=== PATIENT | male | born 1995 | race Caucasian/White ===

== ENCOUNTER 2017-09-27 23:24 | Emergency (ER) | payer BC, OTHER ==
[~2017-09-27] VITALS: Ht 175.3 cm; Wt 79.9 kg
[~2017-09-27 23:24] MED LIST: ASPI-390 PO; [UNRECOGNIZED DRUG - CODE] PO
[2017-09-27 23:29] VITALS: TEMP 36.9; Ht 175.3 cm; Wt 79.9 kg
[2017-09-27] MEDS ORDERED: DOXYCYCLINE HYCLATE 100 MG CAP PO STA (23:39)
[2017-09-27] MEDS ORDERED: DIPHTHERIA/TETANUS/PERTUSSIS 0.5 ML SYR/VIAL IM. ONE (23:45)
--- NOTE | 2017-09-28 00:14 | EMERGENCY ROOM VISIT NOTE ---
ED Visit Note First contact with patient: 23:33 CHIEF COMPLAINT: Tick bite HISTORY OF PRESENT ILLNESS: This patient is a 22-year-old male that presents to the emergency department with a complaint of a tick in right lateral thigh that she noticed today. he thinks that the tick has been there less than 24 hours. The patient's mother tried to remove it. The tick head remains embedded. The patient is unsure of his last tetanus shot. REVIEW OF SYSTEMS: Head: No headache, injury or neck pain. A Neck: No pain , stiffness, or swelling. Neurological: No headache, new changes in mental status, vertigo, focal weakness, numbness. Gastrointestinal: No abdominal pain , blood in stools, diarrhea, loss of appetite, nausea, or vomiting. General: No fever or chills, fatigue, loss of appetite, or significant recent weight gain or loss. PMH: Otherwise healthy SOCIAL HISTORY: Patient lives at home. Denies tobacco or EtOH use. PHYSICAL EXAM: Vital Signs: Reviewed Nurse's notes. There is a small zone of inflammation and eccymosis around the spot where the tick head remains embedded in the right lateral thigh. The skin is otherwise clear. NEUROLOGICAL: Alert and cooperative. Sensory and motor functions grossly intact. COURSE: The patient was seen and examined. The patient was given doxycycline 200 mg by mouth. The patient was given an Adacel injection. The area was prepped with alcohol. A small wheal was made with 0.5 cc of buffered lidocaine under the tick head. Using a scalpel and forceps, the tick head was then easily removed. The patient tolerated the procedure well. he was given a Band- Aid. Discharge instructions were reviewed, and she was discharged in good condition DIAGNOSIS: Tick bite DISCHARGE INSTRUCTIONS & TREATMENT: Watch the area for signs of infection. Please watch for a bull's-eye rash. Other warning signs would be fever, severe headache or joint pain. Please follow-up with your primary care physician as needed, and do not hesitate to return to the emergency department with any new or concerning symptoms It was a pleasure participating in your care today This chart was completed in part utilizing [employer] Voice Recognition software. Attempts were made to minimize the grammatical errors, random word insertions, pronoun errors and incomplete sentences. Any formal questions or concerns about the content, text or information contained within the body of this dictation should be directly addressed to the provider for clarification.
[2017-09-28 00:17] VITALS: BP 121/70; PULSE 71; O2SAT 98
== END 2017-09-28 00:17 | disposition home or self-care (01) ==
LOC: C.EDB 23:25 → C.EDC 09-28 00:17
DX: S70.361A Insect bite (nonvenomous), right thigh, initial encounter (principal); W57.XXXA Bitten or stung by nonvenomous insect and other nonvenomous arthropods, initial encounter

== ENCOUNTER 2018-01-01 22:28 | Emergency (ER) | payer OTHER ==
[~2018-01-01] VITALS: Ht 172.7 cm; Wt 76.4 kg
[~2018-01-01 22:28] MED LIST changes: -ASPI-390 PO
[2018-01-01 22:33] VITALS: TEMP 36.9; Ht 172.7 cm; Wt 76.4 kg
[2018-01-01] MEDS ORDERED: FAMOTIDINE 20MG/5ML IV PUSH IV STA (22:41)
[2018-01-01] MEDS ORDERED: SODIUM CHLORIDE 0.9% 1000ML 1,000 ML IV STA (22:41)
[2018-01-01] MEDS ORDERED: METHYLPREDNISOLONE 125 MG VIAL IV STA (22:41)
--- NOTE | 2018-01-01 22:53 | EMERGENCY ROOM VISIT NOTE ---
History Report prepared by Joaquim: Jake Lin Under the Supervision of: Dr. Enrike Hart M.D. First contact with patient: 22:37 Chief Complaint: ALLERGIC REACTION Stated Complaint: BEE STING, LIGHT HEADED, SWELLING, HEADACHE History of Present Illness The patient is a 22 year old male who presents to the Emergency Room with complaints of an allergic reaction to a bee sting on his right forearm that occurred today at about 1300. He states there was minimal swelling when the bee stung him. He states the bee sting happened at work but his boss did not allow him to come to the ED. He states he took Benadryl at 2130 and that before he did he had trouble breathing and swallowing. He has a known bee sting allergy. Source of History: patient Onset: Today at 1300 Position: arm (right) Symptom Intensity: minimal Modifying Factors (Relieving): other (Benadryl ) Associated Symptoms: + SOB Review of Systems See HPI for pertinent positives and negatives. A total of ten systems were reviewed and were otherwise negative. Past Medical & Surgical Medical Problems: (1) Asthma (2) Seasonal allergies Family History Patient reports no known family medical history. Social History Smoking Status: Never Smoker Alcohol Use: none Drug Use: none Marital Status: single Housing Status: lives with family Current/Historical Medications Scheduled PRN Diphenhydramine Hcl (Benadryl Allergy), 25-50 MG PO UD PRN for Allergic Reaction Allergies Coded Allergies: Lactose (Verified Allergy, Intermediate, N/V/D, 09/27/17) BEE STING (Verified Allergy, Unknown, ANAPHYLAXIS, 01/01/18) Physical Exam Vital Signs Date Time Temp Pulse Resp B/P (MAP) Pulse Ox O2 Delivery O2 Flow Rate FiO2 01/01/18 22:48 98 Room Air 01/01/18 22:33 36.9 106 16 131/83 98 Room Air Physical Exam Physical Exam GENERAL: He is oriented to person, place, and time. He appears well-developed and well-nourished. He does not appear distressed. HENT: Exam performed. Head: Normocephalic and atraumatic. Right Ear: External ear normal. No mastoid tenderness. Left Ear: External ear normal. No mastoid tenderness. Mouth/Throat: The oropharynx is clear and moist. No trismus in the jaw. No dental abscesses or uvula swelling. No oropharyngeal exudate or tonsillar abscesses. EYES: Conjunctivae and EOM are normal. Pupils are equal, round, and reactive to light. Right eye exhibits no discharge. Left eye exhibits no discharge. No scleral icterus. NECK: Normal range of motion. Neck supple. No JVD present. No spinous process tenderness present. No carotid bruit present. No rigidity. No tracheal deviation and normal range of motion present. No Brudzinski's sign and no Kernig 's sign noted. CV: Normal rate, regular rhythm, normal heart sounds and intact distal pulses. There is no peripheral edema. Palpable radial pulses bue. PULM/CHEST: Effort normal and breath sounds normal. No respiratory distress. No stridor. He has no wheezes. He has no rales. Chest Wall: He exhibits no tenderness. ABD: The abdomen is soft. Bowel sounds are normal. He has no distension. No mass is present. There is no tenderness. There is no rebound, no guarding, no Renteria's sign and no tenderness at McBurney's point. Rovsig negative. MUSC/SKEL: Normal range of motion. There is no peripheral edema, tenderness or deformity. LYMPH: No cervical adenopathy. NEURO: He is alert and oriented to person, place, and time. He has normal strength. No cranial nerve deficit or sensory deficit. Coordination and gait normal. GCS eye subscore is 4. GCS verbal subscore is 5. GCS motor subscore is 6. Cerebellar tests wnl. SKIN: Skin is warm and dry. He is not diaphoretic. 3 cm erythematous cantwell region on right forearm, no drainage, warmth or purulence. Nikolsky is negative , no vesicles. Consistent with appearance of an insect bite. PSYCH: He has a normal mood and affect. Behavior is normal. Judgment and thought content normal. Medical Decision & Procedures Medications Administered Medications (Trade) Dose Ordered Sig/Yunier Route Start Time Stop Time Status Last Admin Dose Admin Sodium Chloride 1,000 ml @ 999 mls/hr Q1H1M STAT IV 01/01/18 22:41 01/01/18 23:41 DC 01/01/18 23:05 999 MLS/HR Famotidine (Pepcid 20mg Iv Push) 20 mg ONE STAT IV 01/01/18 22:41 01/01/18 22:42 DC 01/01/18 23:05 20 MG Methylprednisolone Sodium Succinate (Solu-Medrol IV) 125 mg NOW STAT IV 01/01/18 22:41 01/01/18 22:42 DC 01/01/18 23:05 125 MG ED Course 2238: The patient was evaluated in room B7. A complete history and physical exam was performed. 2241: Solu-Medrol 125mg IV, Pepcid 20mg IV, Sodium Chloride 1000ml @ 999mls/hr 2340: Vital signs are stable. He has no acute respiratory distress. He has no stridor or wheezing. I told him to follow up with PCP. DISCHARGE - Plan of care discussed with patient and questions answered. The patient was given both verbal and printed discharge instructions. The patient verbalized understanding and ability to comply. The patient is to seek outpatient follow up as noted in the discharge instructions. The patient verbalized understanding and ability to comply. The patient is discharged in stable condition. The patient was instructed to return for worsening symptoms. Medical Decision 2238: The patient was evaluated in room B7. A complete history and physical exam was performed. 2241: Solu-Medrol 125mg IV, Pepcid 20mg IV, Sodium Chloride 1000ml @ 999mls/hr 2340: Vital signs are stable. He has no acute respiratory distress. He has no stridor or wheezing. I told him to follow up with PCP. DISCHARGE - Plan of care discussed with patient and questions answered. The patient was given both verbal and printed discharge instructions. The patient verbalized understanding and ability to comply. The patient is to seek outpatient follow up as noted in the discharge instructions. The patient verbalized understanding and ability to comply. The patient is discharged in stable condition. The patient was instructed to return for worsening symptoms. Medication Reconcilliation Current Medication List: was personally reviewed by me Blood Pressure Screening Patient's blood pressure: Normal blood pressure Impression Primary Impression: Allergic reaction to insect bite Scribe Attestation The scribe's documentation has been prepared under my direction and personally reviewed by me in its entirety. I confirm that the note above accurately reflects all work, treatment, procedures, and medical decision making performed by me. The chart was completed utilizing [employer] voice recognition software. Grammatical errors, random word insertions, pronoun errors, and incomplete sentences are an occasional consequence of this system due to software limitations, ambient noise, and hardware issues. Any formal questions or concerns about the content, text, or information contained within the body of this dictation should be directly addressed to the physician for clarification. Departure Information Dispostion Home / Self-Care Referrals Valeriano Alvarez M.D.([facility]) (PCP) Forms HOME CARE DOCUMENTATION FORM, IMPORTANT VISIT INFORMATION Patient Instructions My [facility]
[2018-01-01] MEDS ORDERED: DIPH1TAB87 PO (23:35)
[2018-01-02 00:18] VITALS: BP 119/80; PULSE 86; O2SAT 100
== END 2018-01-02 00:18 | disposition home or self-care (01) ==
LOC: C.EDB 22:29
DX: T63.441A Toxic effect of venom of bees, accidental (unintentional), initial encounter (principal); J45.909 Unspecified asthma, uncomplicated; Z91.011 Allergy to milk products; Z91.030 Bee allergy status

== ENCOUNTER 2018-06-30 17:13 | Inpatient (IN) ==
[2018-06-30 18:53] LABS: Albumin Level 3.7 gm/dl (3.4-5.0); BUN Creatinine Ratio 9.8 (10-20); Creatinine Clr Calc Pharmacy 92.7 ml/min; Est GFR (African American) 94.4; Est GFR (Non-African American) 81.4; Potassium 3.6 mmol/L (3.5-5.1)
[2018-06-30 18:56] LABS: Albumin Globulin Ratio 0.9 (0.9-2); Bilirubin,Total 0.5 mg/dl (0.2-1); Globulin 4.2 gm/dl (2.5-4.0); Total Protein 7.9 gm/dl (6.4-8.2)
[2018-06-30 19:01] LABS: Basophils # (auto) 0.02 K/uL (0-0.2); Basophils % (auto) 0.2 %; Eosinophils # (auto) 0.04 K/uL (0-0.5); Eosinophils % (auto) 0.3 %; Hematocrit (blood only) 45.4 % (42-52); Immature Granulocytes # (auto) 0.02 K/uL (0.00-0.02); Immature Granulocytes % (auto) 0.2 %; Lymphocytes # (auto) 1.38 K/uL (1.2-3.4); Lymphocytes % (auto) 11.2 %; Mean Corpuscular Hgb Conc 35.2 g/dL (32-36); Mean Corpuscular Volume 90.3 fL (80-100); Mean Platelet Volume 11.8 fL (7.4-10.4); Monocytes # (auto) 1.72 K/uL (0.11-0.59); Neutrophils # (auto) 9.14 K/uL (1.4-6.5); Neutrophils % (auto) 74.1 %; Platelet Count 169 K/uL (130-400); RDW Coefficient of Variation 12.8 % (11.5-14.5); RDW Standard Deviation 42.1 fL (36.4-46.3); Red Blood Count 5.03 M/uL (4.7-6.1); White Blood Count 12.32 K/uL (4.8-10.8)
[2018-06-30] MEDS ORDERED: KETOROLAC TROMETHAMINE 15 MG/ML VIAL IV STA (19:43)
[2018-06-30] MEDS ORDERED: SODIUM CHLORIDE 0.9% 1000ML 1,000 ML IV SCH (19:45)
[2018-06-30] MEDS ORDERED: KETOROLAC 30 MG/ML VIAL IV STA (20:08)
[2018-06-30] MEDS ORDERED: SODIUM CHLORIDE 0.9% 1000ML 2,000 ML IV ONE (20:08)
--- NOTE | 2018-06-30 20:37 | XRay Report ---
XR chest 1V portable HISTORY: 23 years-old Male cough acute cough COMPARISON: Thoracic spine radiographs 10/29/2008 TECHNIQUE: Portable AP view of the chest FINDINGS: Cardiomediastinal and hilar silhouettes are within normal limits. No pneumothorax, pleural effusion, focal airspace consolidation or overt pulmonary edema. The bones of the chest appear grossly intact. IMPRESSION: No acute process. The above report was generated using voice recognition software. It may contain grammatical, syntax o r spelling errors. Electronically signed by: Matt Carlson M.D. 06/30/2018 8:36 PM
[2018-06-30] MEDS ORDERED: IOVERSOL 100ml IV PRN (20:43)
--- NOTE | 2018-06-30 21:20 | CT Scan Report ---
ABDOMEN AND PELVIS CT WITH IV CONTRAST CT DOSE: 289.75 mGy.cm HISTORY: Acute right lower quadrant abdominal pain rlq abd pain TECHNIQUE: Multiaxial CT images of the abdomen and pelvis were performed following the use of intrave nous contrast. A dose lowering technique was utilized adhering to the principles of ALARA. COMPARISON STUDY: None. FINDINGS: Lung bases are generally clear. There is no pneumatosis or pneumoperitoneum identified. The imaged in ferior cardiac chambers appear unremarkable. Spleen is mildly enlarged, 14.6 cm in length. Gallbladder, liver, pancreas and adrenal glands appear unremarkable. 4 mm nonobstructing calculus about the inferior pole right kidney. 3 mm nonobstructing calculus of the interpolar right kidney. There is mild right-sided hydroureteronephrosis with perinep hric inflammatory stranding and right ureteral urothelial enhancement secondary to an 8 x 5 x 8 mm ca lculus of the mid right ureter at the level of the mid L3 vertebral body. The left ureter, urinary bl adder and prostate appear unremarkable. Aorta and IVC are within normal limits. Retroaortic left oj l vein. No bowel obstruction or focal bowel wall thickening. The appendix appears normal within the abdominal right lower quadrant. Ascites or mesenteric inflammation. Soft tissues are within normal limits. Mil d endplate degenerative changes appear greater than expected for patient's age. The bones appear to b e intact. IMPRESSION: 1. Mild right-sided hydroureteronephrosis secondary to an 8 x 5 x 8 mm calculus of the mid right uret er at the level of L3. 2. Mild associated urothelial enhancement about the right ureter is likely reactive with superimposed infection also within the differential. Correlate with urinalysis. 3. Nonobstructing right nephrolithiasis. 4. Normal appendix. Electronically signed by: Matt Carlson M.D. 06/30/2018 9:19 PM
[2018-06-30] MEDS ORDERED: cefTRIAXone SODIUM 1,000 MG/50 ML BAG IV STA (21:26)
[2018-06-30 21:53] LABS: Appearance Urine Clear (Clear); Bacteria Urine Automated Negative (Negative); Color Urine Dark Yellow; Epithelial Cell Urine Auto 20-30 /lpf (0-5); Glucose Urine UA Negative (Negative); Ketones Urine 1+ (Negative); Leukocyte Esterase Urine Negative (Negative); Nitrite Urine Negative (Negative); Protein Urine 1+ (Negative); Specific Gravity Urine 1.028 (1.000-1.030); Urobilinogen Urine Negative (Negative); pH Urine 5.5 (4.5-7.5)
[2018-06-30 21:55] LABS: Bilirubin Urine Negative (Negative); Ictotest Urine Negative (Negative)
--- NOTE | 2018-06-30 23:22 | Urology Consultation ---
Date of Consultation June 30, 2018 Assessment & Plan (1) Nephrolithiasis: Stone in the mid R ureter - question of whether he has two distinct problems (viral URI w/ fevers and a separate issue of kidney stone) - UA is not consistent with infection - exam is not consistent with infected stone - given his stability, I will avoid emergent stenting - if continued fevers and/or worsening flank pain, we may have to consider intervention tomorrow - should be kept NPO after MN in prep - but our team will reassess in the morning History of Present Illness History of Present Illness very healthy 23y.o male presenting to the ER with what he thought was the flu - upper respiratory symptoms, cough, myalgias, low grade fevers, some GI symptoms (nausea/vomiting) - minor right mid abdominal pain for 6-7 days - no assoicated urinary symptoms - no dysuria, no hematuria - in the midst of w/u, an abdominal CT was ordered - 5mm prox right ureteral calc - UA - high epi #s, nit neg, WBC - currently very comfortable Allergies Allergy/AdvReac Type Severity Reaction Status Date / Time lactose Allergy Intermediate N/V/D Verified 06/30/18 19:59 bee venom protein (honey bee) Allergy Unknown ANAPHYLAXIS Verified 06/30/18 19: 59 Home Medications Home Medications Medication Instructions Recorded Confirmed Type No Known Home Medications 06/30/18 06/30/18 History Patient History Medical History Lactose intolerance Social History Feels Safe at Home: Yes Smoking Status: Current every day smoker Review of Systems Constitutional: as per Subjective / HPI, + fever, + chills and + body aches Ear, Nose, Mouth, Throat: + nasal congestion, + post nasal drip and + sore throat Respiratory: + cough; no dyspnea Cardiovascular: no chest pain and no dyspnea Gastrointestinal: + abdominal pain and + nausea Genitourinary (Male): + flank pain; no dysuria, no urinary frequency and no hematuria Musculoskeletal: + myalgia; no back pain and no neck pain Integumentary: no rash Endocrine: no fatigue Physical Exam 2 Vital Signs (Past 24 Hours): Last Vital Signs Temp 37.3 C 06/30/18 21:50 Pulse 95 H 06/30/18 21:50 Resp 18 06/30/18 21:50 BP 129/88 06/30/18 21:50 Pulse Ox 98 06/30/18 21:50 Physical Exam: Tc - 37.3 (37.9 on arrival) HR 105 on arrival, now 85 NAD - non-toxic appearing - seems very comfortable No resp distress RRR abd soft, minimal tenderness in the right mid abd, no CVA tenderness no rashes no adenopathy no edema
--- NOTE | 2018-07-01 00:05 | Emergency Department Note ---
Entered by Phyllis Polanco acting as a scribe for History of Present Illness General Chief complaint: Flu Like Symptoms Stated complaint: BODY PAIN, VOMITING, HOT/COLD, ABSCESS IN THROAT Source: patient Mode of arrival: ambulatory Limitations: no limitations History of Present Illness Onset (ago): day(s) 4 Location: head Radiation: non-radiation Pain Consistency: + constant Maximum Pain Intensity: 8 Relieved By: + medication Exacerbated By: + none Associated symptoms: + cough, + nausea/vomiting and + other (+right sided abdominal pain, +sore throat); no fever/chills The patient is a 23 year old male who presents to the Emergency Room with complaints of flu like symptoms for the past 4 days. He states his symptoms started as a sore throat and has progressed to ear pain, jaw pain, a productive cough, body aches and nausea and vomiting. The patient did not receive a flu shot this year. Dayquil has provided minimal relief. He is a current smoker but has not had a cigarette in the past 4 days. The patient also complains of right sided abdominal pain that started 3 days ago. He does not think he's been febrile. No other exacerbating or remitting factors. Home Medications Home Medications Medication Instructions Recorded Confirmed Type No Known Home Medications 06/30/18 06/30/18 History Allergies Allergy/AdvReac Type Severity Reaction Status Date / Time lactose Allergy Intermediate N/V/D Verified 06/30/18 19:59 bee venom protein (honey bee) Allergy Unknown ANAPHYLAXIS Verified 06/30/18 19: 59 Past Med/Surg History Medical History Lactose intolerance Social History Feels Safe at Home: Yes Smoking Status: Current every day smoker Review of Systems See HPI for pertinent positives & negatives. and A total of 10 systems reviewed and were otherwise negative Physical Exam Vital Signs Vital Signs - 24 hr 06/30/18 17:32 06/30/18 19:33 06/30/18 21:50 Temperature 37.2 C 37.9 C H 37.3 C Temperature Source Oral Oral Oral Sepsis Recent Fever Within 48 Hours Yes Sepsis New/Unexplained Change in Mental Status No Sepsis Action Taken by Nursing No Action Required Pulse Rate 107 H Pulse Rate [Right Finger] 104 H 95 H Pulse Rhythm [Right Finger] Regular Pulse Strength [Right Finger] Normal Respiratory Rate 20 18 18 Respiratory Effort / Characteristics Non-Labored Respiratory Depth Normal Respiratory Pattern Regular Blood Pressure 127/73 Blood Pressure [Right Arm] 123/90 129/88 Blood Pressure Mean 91 Blood Pressure Mean [Right Arm] 101 101 Blood Pressure Position [Right Arm] Lying Pulse Oximetry 96 100 98 Oxygen Delivery Method Room Air Room Air 06/30/18 23:12 Temperature Temperature Source Sepsis Recent Fever Within 48 Hours Sepsis New/Unexplained Change in Mental Status Sepsis Action Taken by Nursing Pulse Rate Pulse Rate [Right Finger] 85 Pulse Rhythm [Right Finger] Regular Pulse Strength [Right Finger] Normal Respiratory Rate 20 Respiratory Effort / Characteristics Non-Labored Spontaneous Respiratory Depth Normal Respiratory Pattern Regular Blood Pressure Blood Pressure [Right Arm] 118/82 Blood Pressure Mean Blood Pressure Mean [Right Arm] 94 Blood Pressure Position [Right Arm] Pulse Oximetry 99 Oxygen Delivery Method Room Air GENERAL: Sitting up in bed, alert, well appearing, dry persistent cough, well nourished, no distress, non-toxic EYE EXAM: normal conjunctiva. PERRL and EOM's grossly intact. EARS: TM's are clear bilaterally. OROPHARYNX: no exudate, erythema in posterior pharynx, lips, buccal mucosa, and tongue normal and mucous membranes are moist NECK: supple, no nuchal rigidity, no adenopathy, non-tender LUNGS: Clear to auscultation. Normal chest wall mechanics HEART: no murmurs, S1 normal and S2 normal ABDOMEN: abdomen soft, tenderness to palpation in RLQ, normo-active bowel, sounds, no masses, no rebound or guarding. BACK: Back is symmetrical on inspection and there is no deformity, no midline tenderness, no CVA tenderness. SKIN: no rashes and no bruising UPPER EXTREMITIES: upper extremities are grossly normal. LOWER EXTREMITIES: No pitting edema. Calves are equal bilaterally. NEURO EXAM: Normal sensorium, cranial nerves II-XII grossly intact, normal speech, no gross weakness of arms, no gross weakness of legs. Gross sensation intact.] Course ED COURSE: Vital signs were reviewed and showed the patient is tachycardic. The patients medical record was reviewed The above diagnostic studies were performed and reviewed. ED treatments and interventions as stated above. 2010: The patient was evaluated in room C9. A complete history and physical examination was performed. 2219: I discussed the patients case with [facility]. The patient will be further evaluated. 2125: I reevaluated the patient. He is resting comfortably. 2299: [facility] The patient will be further evaluated. 2304: Upon reevaluation, the patient is resting comfortably. I discussed my findings with the patient and she understands and agrees with the treatment plan. Based on the patients age, coexisting illnesses, exam and lab findings the decision to treat as an inpatient was made. The patient remained stable while under my care. The patient will be evaluated for further management. Consultations Consultation #1: I discussed the patients case with [facility]. The patient will be further evaluated. Time: :19 Consultation #2: I discussed the patients case with Dr. [facility]. The patient will be further evaluated. Time: 23:00 Administered Medications Ioversol (Optiray 320 100ml) 93 ml IV ONCE PRN PRN Reason: Interaction Checking Stop: 07/04/18 20:42 Last Admin: 06/30/18 20:43 Dose: 93 ml Discontinued Medications Sodium Chloride (Nss 1000ml) 1,000 mls @ 999 mls/hr IV .Q1H1M SARAH Stop: 06/30/18 20:45 Last Infusion: 06/30/18 22:06 Dose: 0 mls/hr Admin: 06/30/18 20:13 Dose: 999 mls/hr Sodium Chloride (Nss 1000ml) 2,000 mls @ 999 mls/hr IV .Q2H1M ONE Stop: 06/30/18 22:08 Last Infusion: 06/30/18 23:15 Dose: 0 mls/hr Admin: 06/30/18 21:13 Dose: 999 mls/hr Ceftriaxone Sodium (Rocephin) 1,000 mg in 50 mls @ 100 mls/hr IV NOW STA Stop: 06/30/18 21:55 Last Infusion: 06/30/18 22:07 Dose: 0 mls/hr Admin: 06/30/18 21:31 Dose: 100 mls/hr Ketorolac Tromethamine (Toradol) 15 mg IV NOW STA Stop: 06/30/18 19:44 Last Admin: 06/30/18 20:13 Dose: Not Given Ketorolac Tromethamine (Toradol) 30 mg IV NOW STA Stop: 06/30/18 20:09 Last Admin: 06/30/18 20:13 Dose: 30 mg Medical Decision Making Differential Diagnosis Differential diagnoses includes but is not limited to gastritis, peptic ulcer disease, GERD, gallbladder disease, pancreatitis, small bowel obstruction, acute coronary syndrome, pericarditis, ischemic bowel, irritable bowel disease, irritable bowel syndrome, appendicitis, diverticulitis, malignancy, hernia, urinary tract infection, torsion, perforation, trauma, infectious. Medical Records Attestation: I reviewed the patient's medical records. Home Medications Current Medication List: was personally reviewed by me Laboratory Data Attestation: I reviewed the patient's lab results. Result diagrams: 06/30/18 18:19 06/30/18 18:19 Lab Results 06/30/18 06/30/18 06/30/18 Range/Units 17:32 17:35 18:19 WBC 12.32 H (4.8-10.8) K/uL RBC 5.03 (4.7-6.1) M/uL Hgb 16.0 (14.0-18.0) g/dL Hct 45.4 (42-52) % MCV 90.3 (80-100) fL MCH 31.8 (25-34) pg MCHC 35.2 (32-36) g/dL RDW Std Deviation 42.1 (36.4-46.3) fL RDW Coeff of Vanessa 12.8 (11.5-14.5) % Plt Count 169 (130-400) K/uL MPV 11.8 H (7.4-10.4) fL Immature Gran % (Auto) 0.2 % Neut % (Auto) 74.1 % Lymph % (Auto) 11.2 % [place] % (Auto) 14.0 % Eos % (Auto) 0.3 % Baso % (Auto) 0.2 % Immature Gran # (Auto) 0.02 (0.00-0.02) K/uL Neut # (Auto) 9.14 H (1.4-6.5) K/uL Lymph # (Auto) 1.38 (1.2-3.4) K/uL [place] # (Auto) 1.72 H (0.11-0.59) K/uL Eos # (Auto) 0.04 (0-0.5) K/uL Baso # (Auto) 0.02 (0-0.2) K/uL Sodium (136-145) mmol/L Potassium (3.5-5.1) mmol/L Chloride (98-107) mmol/L Carbon Dioxide (21-32) mmol/L Anion Gap (3-11) BUN (7-18) mg/dl Creatinine (0.6-1.4) mg/dl Est Cr Clr Drug Dosing ml/min Est GFR ( Amer) Est GFR (Non-Af Amer) BUN/Creatinine Ratio (10-20) Glucose (70-99) mg/dl Calcium (8.5-10.1) mg/dl Total Bilirubin (0.2-1) mg/dl AST (15-37) U/L ALT (12-78) U/L Alkaline Phosphatase (45-117) U/L Total Protein (6.4-8.2) gm/dl Albumin (3.4-5.0) gm/dl Globulin (2.5-4.0) gm/dl Albumin/Globulin Ratio (0.9-2) Lipase (73-393) U/L Urine Color Dark Yellow Urine Appearance Clear (Clear) Urine pH 5.5 (4.5-7.5) Ur Specific [place] 1.028 (1.000-1.030) Urine Protein 1+ H (Negative) Urine Glucose (UA) Negative (Negative) Urine Ketones 1+ H (Negative) Urine Blood 2+ H (Negative) Urine Nitrite Negative (Negative) Urine Bilirubin Negative (Negative) Urine Urobilinogen Negative (Negative) Ur Leukocyte Esterase Negative (Negative) Urine WBC (Auto) 1-5 (0-5) /hpf Urine RBC (Auto) >30 H (0-4) /hpf U Hyaline Cast (Auto) 5-10 H (0-5) /lpf U Epithel Cells (Auto) 20-30 H (0-5) /lpf Urine Bacteria (Auto) Negative (Negative) Monoscreen (Negative) Influenza Type A Ag Neg for Influ A (Neg) Influenza Type B Ag Neg for Influ B (Neg) 06/30/18 06/30/18 Range/Units 18:19 18:19 WBC (4.8-10.8) K/uL RBC (4.7-6.1) M/uL Hgb (14.0-18.0) g/dL Hct (42-52) % MCV (80-100) fL MCH (25-34) pg MCHC (32-36) g/dL RDW Std Deviation (36.4-46.3) fL RDW Coeff of Vanessa (11.5-14.5) % Plt Count (130-400) K/uL MPV (7.4-10.4) fL Immature Gran % (Auto) % Neut % (Auto) % Lymph % (Auto) % [place] % (Auto) % Eos % (Auto) % Baso % (Auto) % Immature Gran # (Auto) (0.00-0.02) K/uL Neut # (Auto) (1.4-6.5) K/uL Lymph # (Auto) (1.2-3.4) K/uL [place] # (Auto) (0.11-0.59) K/uL Eos # (Auto) (0-0.5) K/uL Baso # (Auto) (0-0.2) K/uL Sodium 134 L (136-145) mmol/L Potassium 3.6 (3.5-5.1) mmol/L Chloride 99 (98-107) mmol/L Carbon Dioxide 28 (21-32) mmol/L Anion Gap 7.0 (3-11) BUN 12 (7-18) mg/dl Creatinine 1.24 (0.6-1.4) mg/dl Est Cr Clr Drug Dosing 92.7 ml/min Est GFR ( Amer) 94.4 Est GFR (Non-Af Amer) 81.4 BUN/Creatinine Ratio 9.8 L (10-20) Glucose 97 (70-99) mg/dl Calcium 9.0 (8.5-10.1) mg/dl Total Bilirubin 0.5 (0.2-1) mg/dl AST 17 (15-37) U/L ALT 24 (12-78) U/L Alkaline Phosphatase 97 (45-117) U/L Total Protein 7.9 (6.4-8.2) gm/dl Albumin 3.7 (3.4-5.0) gm/dl Globulin 4.2 H (2.5-4.0) gm/dl Albumin/Globulin Ratio 0.9 (0.9-2) Lipase 92 (73-393) U/L Urine Color Urine Appearance (Clear) Urine pH (4.5-7.5) Ur Specific [place] (1.000-1.030) Urine Protein (Negative) Urine Glucose (UA) (Negative) Urine Ketones (Negative) Urine Blood (Negative) Urine Nitrite (Negative) Urine Bilirubin (Negative) Urine Urobilinogen (Negative) Ur Leukocyte Esterase (Negative) Urine WBC (Auto) (0-5) /hpf Urine RBC (Auto) (0-4) /hpf U Hyaline Cast (Auto) (0-5) /lpf U Epithel Cells (Auto) (0-5) /lpf Urine Bacteria (Auto) (Negative) Monoscreen Negative (Negative) Influenza Type A Ag (Neg) Influenza Type B Ag (Neg) Imaging Data Radiologist's Impression: Radiology results as stated below per my review and the radiologist's interpretation: ABDOMEN AND PELVIS CT WITH IV CONTRAST CT DOSE: 289.75 mGy.cm HISTORY: Acute right lower quadrant abdominal pain rlq abd pain TECHNIQUE: Multiaxial CT images of the abdomen and pelvis were performed following the use of intravenous contrast. A dose lowering technique was utilized adhering to the principles of ALARA. COMPARISON STUDY: None. FINDINGS: Lung bases are generally clear. There is no pneumatosis or pneumoperitoneum identified. The imaged inferior cardiac chambers appear unremarkable. Spleen is mildly enlarged, 14.6 cm in length. Gallbladder, liver, pancreas and adrenal glands appear unremarkable. 4 mm nonobstructing calculus about the inferior pole right kidney. 3 mm nonobstructing calculus of the interpolar right kidney. There is mild right-sided hydroureteronephrosis with perinephric inflammatory stranding and right ureteral urothelial enhancement secondary to an 8 x 5 x 8 mm calculus of the mid right ureter at the level of the mid L3 vertebral body. The left ureter, urinary bladder and prostate appear unremarkable. Aorta and IVC are within normal limits. Retroaortic left renal vein. No bowel obstruction or focal bowel wall thickening. The appendix appears normal within the abdominal right lower quadrant. Ascites or mesenteric inflammation. Soft tissues are within normal limits. Mild endplate degenerative changes appear greater than expected for patient's age. The bones appear to be intact. IMPRESSION: 1. Mild right-sided hydroureteronephrosis secondary to an 8 x 5 x 8 mm calculus of the mid right ureter at the level of L3. 2. Mild associated urothelial enhancement about the right ureter is likely reactive with superimposed infection also within the differential. Correlate with urinalysis. 3. Nonobstructing right nephrolithiasis. 4. Normal appendix. Electronically signed by: Matt Carlson M.D. 06/30/2018 9:19 PM XR chest 1V portable HISTORY: 23 years-old Male cough acute cough COMPARISON: Thoracic spine radiographs 10/29/2008 TECHNIQUE: Portable AP view of the chest FINDINGS: Cardiomediastinal and hilar silhouettes are within normal limits. No pneumothorax, pleural effusion, focal airspace consolidation or overt pulmonary edema. The bones of the chest appear grossly intact. IMPRESSION: No acute process. The above report was generated using voice recognition software. It may contain grammatical, syntax or spelling errors. Electronically signed by: Matt Carlson M.D. 06/30/2018 8:36 PM Blood Pressure Blood Pressure Findings: Normal blood pressure Blood Pressure Disposition: did not require urgent referral MDM Narrative Patient is a 23-year-old male who presents the ER for cough, congestion, runny nose and a sore throat in combination with abdominal pain. Vitals were obtained and he was tachycardic and febrile at 37.9. He did have a fever at home of 104. Labs were obtained and showed a leukocytosis of 12,000. BMP was unremarkable along with LFTs bilirubin and lipase. UA did have hematuria. No white cells. CT abdomen pelvis was performed and confirms an 8 x 5 mm right distal ureter stone with possible ascending infection. He was covered with IV Rocephin and IV fluids. [place] and influenza was negative. Discussed with urology and evaluated him at bedside. At this time, uncertain if the cause of the fevers is truly from the stone versus URI. He was updated bedside and admitted to the hospitalist as well. He was monitored closely while in the ER. Impression & Plan Hydronephrosis, Renal colic, Viral URI, Fever Discharge Plan Visit Data Chief Complaint: Flu Like Symptoms Stated Complaint: BODY PAIN, VOMITING, HOT/COLD, ABSCESS IN THROAT ED Provider: Lavell Ramsey Discharge Problem: Hydronephrosis, Renal colic, Viral URI, Fever Patient Disposition: Being Evaluated by Hospitalist Forms Stand Alone Forms: [facility] Prescriptions Prescriptions: No Action No Known Home Medications RF: 0 Referrals Referrals: Valeriano Alvarez MD [Primary Care Provider] - The scribe's documentation has been prepared under my direction and personally reviewed by me in its entirety. I confirm that the note above accurately reflects all work, treatment, procedures, and medical decision making performed by me.
--- NOTE | 2018-07-01 00:14 | History and Physical Report ---
DATE OF ADMISSION: 06/30/2018 CHIEF COMPLAINT: Fever and cough. HISTORY OF PRESENT ILLNESS: This is a 23-year-old male with past medical history significant for lactose intolerance, tobacco abuse. He comes because of not feeling well since last Wednesday. He was having cough with yellowish phlegm and was also having temperature at home, feeling hot and cold, was soaking in sweat and also nausea. Not able to eat much because of nausea and also occasional shortness of breath and abdominal discomfort which brought him to the ER today. Currently resting comfortably and hemodynamically stable. He has some complaints of abdominal discomfort in the left upper quadrant region. No headache, no blurred visions. Has some postnasal drip and sore throat. Normal bowel and bladder movements. No blood in the stools, no black stools, no burning micturitions, no hematuria. ALLERGIES: LACTOSE INTOLERANCE. PAST MEDICAL HISTORY: As mentioned above. PAST SURGICAL HISTORY: None. MEDICATIONS: None. FAMILY HISTORY: Significant for father has allergies, mother has allergies, brother has allergies, sister has allergies, paternal grandfather has asthma. SOCIAL HISTORY: Smokes 1 pack of cigarettes in 3 days for last 4 years. No alcohol use, no drug use. REVIEW OF SYSTEMS: As per HPI. Rest of the review of symptoms negative. PHYSICAL EXAMINATION: GENERAL: The patient is of moderate build, not in acute distress. VITAL SIGNS: Temperature 37.3, pulse 85, respiratory rate 20, blood pressure 118/82, oxygen 99% room air. HEENT: No pallor, no icterus. Pupils equal, round, and react to light. NECK: No JVD, no neck masses, no carotid bruits. CARDIOVASCULAR: S1, S2 heard, regular rate and rhythm, no murmur, no gallop. RESPIRATORY SYSTEM: Normal AP diameter. No accessory muscle use. No wheezing, no crackles. ABDOMEN: Soft, bowel sounds present, mild left upper quadrant tenderness. No guarding, no rigidity. No CVA tenderness. CENTRAL NERVOUS SYSTEM: Cranial nerves II-XII grossly intact, nonfocal. EXTREMITIES: No edema, no erythema. LABORATORY DATA: WBC 12.3, hemoglobin 16, hematocrit 45.4, platelets 169. Sodium 134, potassium 3.6, chloride 99, bicarbonate 28, BUN 12, creatinine 1.2, serum glucose 97, calcium 9, total bilirubin 0.5, AST 17, ALT 24, alkaline phosphatase 97, lipase 92. Urinalysis positive for blood and ketones, negative for nitrate and leukocyte esterase. MONO screen negative. Influenza type A and B negative. IMAGING DATA: CT of the abdomen and pelvis showed mild right-sided hydroureteronephrosis secondary to 8 x 8 mm calculus of the mid right ureter, mild associated urothelial enhancement above the right ureter that is likely reactive with superimposed infection, also within the differential, obstructing right nephrolithiasis, normal appendix. Chest x-ray, no acute process. ASSESSMENT AND PLAN: This 23-year-old male presents with fever, cough, generalized nausea, abdominal discomfort, and found to have a right-sided kidney stone. 1. Fever and cough. History of tobacco abuse. Chest x-ray, no acute process. Mild leukocytosis. On examination, no wheezing heard. Possible bronchitis. We will empirically place on Levaquin. 2. History of tobacco abuse. We will place him on albuterol p.r.n. and nebs p.r.n. 3. Right-sided kidney stone with mild right hydroureteronephrosis. UA was negative for infection, . On Levaquin as above. . Urology notified by the ER. NPO, Iv fluids, Antiemetics and pain meds prn. 4. Tobacco abuse. The patient says he is going to quit smoking. 5. Deep venous thrombosis prophylaxis, sequential compression devices. DISPOSITION: Admit to medical floor, expect to discharge home, and follow with his family doctor. Level 1 full code. MTDD
[2018-07-01] MEDS ORDERED: MoRPHine SULFATE 4 MG/ML 1 ML CARP\\VIAL IV PRN (00:26)
[2018-07-01] MEDS ORDERED: ONDANSETRON INJ 2 MG/ML 2 ML VIAL IV PRN (00:26)
[2018-07-01] MEDS ORDERED: LEVOFLOXACIN/D5W 500 MG/100 ML BAG IV SCH (01:00)
[2018-07-01] MEDS: SODIUM CHLORIDE 0.9% 1000ML 1,000 ML IV SCH ×3 (01:44→19:12)
[2018-07-01 05:42] LABS: Influenza A virus by PCR Neg for Influ A (Neg); Influenza B virus by PCR Neg for Influ B (Neg)
[2018-07-01] MEDS ORDERED: NURSING DECISION MEDICATION ONE (08:05)
--- NOTE | 2018-07-01 08:09 | Urology Progress Note ---
Date of Service July 01, 2018 Assessment & Plan (1) Nephrolithiasis: 23yo M with 5mm R ureteral stone, mild hydro Pain well controlled overnight without medication. Appears comfortable, nontoxic. VSS, afebrile. Mild leukocytosis, secondary to suspected bronchitis UA is not consistent with infection Denies R flank pain or suprapubic pain. More bothered by sorethroat. Will check KUB - stone visible, ~7mm x5mm. minimal progression. Continue to strain urine. Okay to provide diet from our perspective, no acute intervention required at this time. If patient remains asymtomatic, okay to d/c home from our perspective with close f/u to discuss definitive stone treatment. He appears to be a good ESWL candidate once recovered from respiratory illness. Agree to continue empiric levaquin PO outpatient. Brief stone prevention strategies discussed. Please recontact our service urgently if patient develops fever >38C, pain becomes uncontrolled or develops intractable vomiting. Subjective 23yo M with viral symptoms and 5mm R ureteral stone. Pt had an uneventful night. VSS, afebrile overnight. Pain controlled, has not required any pain medication. Only complaint of throat soreness today. Presently asymptomatic of ureteral stone. Denies flank or suprapubic pain. No dysuria, urg/freq or difficulty emptying bladder. Labs stable last evening, not rechecked today. Physical Exam 2 Vital Signs (Past 24 Hours): Last Vital Signs Temp 37.5 C 07/01/18 07:29 Pulse 80 07/01/18 07:29 Resp 16 07/01/18 07:29 BP 121/81 07/01/18 07:29 Pulse Ox 100 07/01/18 07:29 Physical Exam: A&Ox3 RRR no JVD Rhinorrhea Abd soft, nontender Bladder nondistended Results & Data Laboratory Results Laboratory Results - last 48 hr 06/30/18 06/30/18 06/30/18 17:32 17:35 17:35 WBC RBC Hgb Hct MCV MCH MCHC RDW Std Deviation RDW Coeff of Vanessa Plt Count MPV Immature Gran % (Auto) Neut % (Auto) Lymph % (Auto) [place] % (Auto) Eos % (Auto) Baso % (Auto) Immature Gran # (Auto) Neut # (Auto) Lymph # (Auto) [place] # (Auto) Eos # (Auto) Baso # (Auto) Sodium Potassium Chloride Carbon Dioxide Anion Gap BUN Creatinine Est Cr Clr Drug Dosing Est GFR ( Amer) Est GFR (Non-Af Amer) BUN/Creatinine Ratio Glucose Calcium Total Bilirubin AST ALT Alkaline Phosphatase Total Protein Albumin Globulin Albumin/Globulin Ratio Lipase Urine Color Dark Yellow Urine Appearance Clear Urine pH 5.5 Ur Specific [place] 1.028 Urine Protein 1+ H Urine Glucose (UA) Negative Urine Ketones 1+ H Urine Blood 2+ H Urine Nitrite Negative Urine Bilirubin Negative Urine Urobilinogen Negative Ur Leukocyte Esterase Negative Urine WBC (Auto) 1-5 Urine RBC (Auto) >30 H U Hyaline Cast (Auto) 5-10 H U Epithel Cells (Auto) 20-30 H Urine Bacteria (Auto) Negative Monoscreen Influenza Type A Ag Neg for Influ A Influenza Type A (PCR) Neg for Influ A Influenza Type B Ag Neg for Influ B Influenza Type B (PCR) Neg for Influ B 06/30/18 06/30/18 06/30/18 18:19 18:19 18:19 WBC 12.32 H RBC 5.03 Hgb 16.0 Hct 45.4 MCV 90.3 MCH 31.8 MCHC 35.2 RDW Std Deviation 42.1 RDW Coeff of Vanessa 12.8 Plt Count 169 MPV 11.8 H Immature Gran % (Auto) 0.2 Neut % (Auto) 74.1 Lymph % (Auto) 11.2 [place] % (Auto) 14.0 Eos % (Auto) 0.3 Baso % (Auto) 0.2 Immature Gran # (Auto) 0.02 Neut # (Auto) 9.14 H Lymph # (Auto) 1.38 [place] # (Auto) 1.72 H Eos # (Auto) 0.04 Baso # (Auto) 0.02 Sodium 134 L Potassium 3.6 Chloride 99 Carbon Dioxide 28 Anion Gap 7.0 BUN 12 Creatinine 1.24 Est Cr Clr Drug Dosing 92.7 Est GFR ( Amer) 94.4 Est GFR (Non-Af Amer) 81.4 BUN/Creatinine Ratio 9.8 L Glucose 97 Calcium 9.0 Total Bilirubin 0.5 AST 17 ALT 24 Alkaline Phosphatase 97 Total Protein 7.9 Albumin 3.7 Globulin 4.2 H Albumin/Globulin Ratio 0.9 Lipase 92 Urine Color Urine Appearance Urine pH Ur Specific [place] Urine Protein Urine Glucose (UA) Urine Ketones Urine Blood Urine Nitrite Urine Bilirubin Urine Urobilinogen Ur Leukocyte Esterase Urine WBC (Auto) Urine RBC (Auto) U Hyaline Cast (Auto) U Epithel Cells (Auto) Urine Bacteria (Auto) Monoscreen Negative Influenza Type A Ag Influenza Type A (PCR) Influenza Type B Ag Influenza Type B (PCR)
[2018-07-01] MEDS ORDERED: COUGH DROP (SUGAR FREE) LOZ 24 LOZ/1 BOX BUCCAL PRN (08:11)
--- NOTE | 2018-07-01 08:35 | XRay Report ---
KUB HISTORY: R ureteral stone progression COMPARISON: Abdomen and pelvis CT 06/30/2018. FINDINGS: The bowel gas pattern is unremarkable. There are no dilated loops of small bowel to suggest an obstruction. There is again noted a 7 mm in the proximal right ureter. This is similar position compared to the prior study. There is a punctate stone within the right kidney. No definite left oj l calculi. Calcifications in the deep pelvis are consistent with phleboliths. No pneumoperitoneum or pneumatosis. IMPRESSION: 1. No change in the 7 mm proximal right ureteral stone. 2. Right-sided nephrolithiasis. Electronically signed by: Nithin Thompson M.D. 07/01/2018 8:34 AM
[2018-07-01] MEDS: ACETAMINOPHEN 325 MG TAB PO PRN ×3 (09:59→23:42)
[2018-07-01 11:19] LABS: Basophils # (auto) 0.02 K/uL (0-0.2); Basophils % (auto) 0.2 %; Eosinophils # (auto) 0.11 K/uL (0-0.5); Eosinophils % (auto) 1.3 %; Hematocrit (blood only) 37.2 % (42-52); Immature Granulocytes # (auto) 0.01 K/uL (0.00-0.02); Immature Granulocytes % (auto) 0.1 %; Lymphocytes # (auto) 1.77 K/uL (1.2-3.4); Lymphocytes % (auto) 20.8 %; Mean Corpuscular Hgb Conc 34.9 g/dL (32-36); Mean Corpuscular Volume 90.7 fL (80-100); Mean Platelet Volume 10.9 fL (7.4-10.4); Monocytes # (auto) 0.92 K/uL (0.11-0.59); Monocytes % (auto) 10.8 %; Neutrophils # (auto) 5.67 K/uL (1.4-6.5); Neutrophils % (auto) 66.8 %; Platelet Count 125 K/uL (130-400); RDW Coefficient of Variation 12.7 % (11.5-14.5); RDW Standard Deviation 42.7 fL (36.4-46.3)
[2018-07-01 11:27] LABS: Albumin Level 2.8 gm/dl (3.4-5.0); BUN Creatinine Ratio 12.5 (10-20); Calcium 8.3 mg/dl (8.5-10.1); Creatinine Clr Calc Pharmacy 112.6 ml/min; Est GFR (African American) 119.5; Est GFR (Non-African American) 103.1; Potassium 3.8 mmol/L (3.5-5.1)
[2018-07-01 11:30] LABS: C Reactive Protein 12.6 mg/dl (0-0.29)
[2018-07-01 11:45] LABS: Albumin Globulin Ratio 0.8 (0.9-2); Bilirubin,Total 0.3 mg/dl (0.2-1); Globulin 3.5 gm/dl (2.5-4.0); Total Protein 6.3 gm/dl (6.4-8.2)
[2018-07-01] MEDS: AMOXICILLIN 500 MG CAP PO SCH ×2 (14:04→20:15)
--- NOTE | 2018-07-01 18:29 | Hospitalist Progress Note ---
Date of Service July 01, 2018 Assessment & Plan (1) Nephrolithiasis: 23 year old male who presents to the Emergency Room on 06/30/18 symptoms started as a sore throat and has progressed to ear pain, jaw pain, a productive cough, body aches and nausea and vomiting. Right kidney stone and Hydronephrosis -admission imaging remarkable for Mild right-sided hydroureteronephrosis secondary to an 8 x 5 x 8 mm calculus of the mid right ureter at the level of L3 -however his urinalysis does not show infected urine -patient was started on Levaquin -on IV fluids - continued -[facility] urology has evaluated the patient and recommends to Continue to strain urine; no acute intervention required at this time; and as candidate for Extracorporeal shock wave lithotripsy as outpatient once recovered from respiratory illness Upper respiratory symptoms appears to be viral in nature -Chest X ray negative -current strep test results are negative -current mono test results are negative -have empirically switched levaquin to amoxicillin and ciprofloxacin to provide coverage for possible respiratory infection or abdominal/renal infection Other symptoms of sweats, and left side leg pain (which is opposite side of right kidney stone), neck pain does not appear to correlate to a particular identifiable etiology ESR and CRP are elevated TSH normal creatinine kinase normal continue to monitor for symptoms, currently afebrile 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 Subjective Patient has been afebrile. Reports of being sweaty. Pain is generally down left leg which is opposite of the right side side kidney stone. Also reports anterior neck tenderness patient able to eat. no vomiting. has been ambulatory Physical Exam 2 Vital Signs (Past 24 Hours): Last Vital Signs Temp 36.8 C 07/01/18 17:35 Pulse 66 07/01/18 17:35 Resp 20 07/01/18 17:35 BP 104/69 07/01/18 17:35 Pulse Ox 99 07/01/18 17:35 Constitutional: WD/WN, vitals as above Eyes: PERRL, conjunctivae normal, anicteric sclerae EOM intact bilaterally ENMT: external ear and nose normal, oropharynx normal Neck: normal visual inspection and trachea midline Thyroid: + thyroid tender Respiratory: normal respiratory effort, lungs clear to auscultation Cardiovascular: RRR, no murmur, no edema Gastrointestinal (Abdomen): normal bowel sounds, soft, nontender, no hepatosplenomegaly Musculoskeletal: Head/Neck/Chest: normocephalic and head atraumatic Neurologic: PERRL, EOMI, accommodation nl, no face palsy, no dysarthria CN' s II-XI intact bilaterally Psychiatric: A+Ox3, euthymic affect
[2018-07-02] MEDS ORDERED: ASPIRIN 81 MG CHEW PO STA (01:04)
[2018-07-02] MEDS: SODIUM CHLORIDE 0.9% 1000ML 1,000 ML IV SCH (03:23)
[2018-07-02] MEDS: AMOXICILLIN 500 MG CAP PO SCH (08:46)
[2018-07-02] MEDS ORDERED: CIPROFLOXACIN 500 MG TAB PO SCH (09:00)
[2018-07-02 09:24] LABS: Basophils # (auto) 0.02 K/uL (0-0.2); Basophils % (auto) 0.3 %; Eosinophils % (auto) 3.2 %; Hematocrit (blood only) 39.8 % (42-52); Hemoglobin 13.5 g/dL (14.0-18.0); Immature Granulocytes # (auto) 0.01 K/uL (0.00-0.02); Immature Granulocytes % (auto) 0.2 %; Lymphocytes # (auto) 2.27 K/uL (1.2-3.4); Lymphocytes % (auto) 35.9 %; Mean Corpuscular Volume 92.3 fL (80-100); Mean Platelet Volume 11.3 fL (7.4-10.4); Monocytes # (auto) 0.53 K/uL (0.11-0.59); Monocytes % (auto) 8.4 %; Neutrophils # (auto) 3.29 K/uL (1.4-6.5); Platelet Count 135 K/uL (130-400); RDW Coefficient of Variation 12.8 % (11.5-14.5); RDW Standard Deviation 43.4 fL (36.4-46.3); Red Blood Count 4.31 M/uL (4.7-6.1); White Blood Count 6.32 K/uL (4.8-10.8)
[2018-07-02 09:25] LABS: Mean Corpuscular Hgb Conc 33.9 g/dL (32-36)
--- NOTE | 2018-07-02 11:41 | Urology Progress Note ---
Date of Service July 02, 2018 Subjective Patient's afebrile vital signs are stable Currently sleeping in bed KUB reviewed from yesterday proximal right ureteral stone Plan at this time is to have the patient follow-up in our office to schedule extracorporal shockwave lithotripsy As long as he remains afebrile and the pain is manageable no need for stent at this time Physical Exam 2 Vital Signs (Past 24 Hours): Last Vital Signs Temp 36.5 C 07/02/18 07:40 Pulse 63 07/02/18 07:40 Resp 16 07/02/18 07:40 BP 100/62 07/02/18 07:40 Pulse Ox 100 07/02/18 07:40
--- NOTE | 2018-07-02 11:56 | Hospitalist Progress Note ---
Date of Service July 02, 2018 Assessment & Plan (1) Nephrolithiasis: 23 year old male who presents to the Emergency Room on 06/30/18 symptoms started as a sore throat and has progressed to ear pain, jaw pain, a productive cough, body aches and nausea and vomiting. Right kidney stone and Hydronephrosis -admission imaging remarkable for Mild right-sided hydroureteronephrosis secondary to an 8 x 5 x 8 mm calculus of the mid right ureter at the level of L3 -however his urinalysis does not show infected urine -patient was started on Levaquin -[facility] urology has evaluated the patient and recommends to Continue to strain urine; no acute intervention required at this time; and as candidate for Extracorporeal shock wave lithotripsy as outpatient once recovered from respiratory illness -s/p IV fluids Patient should drink water and avoid dehydration -patient [facility] with [facility] which has seen patient in the hospital stay (or Dr. [facility] Address: [address] [place] [address], [place] [address] have been notified to seek appointment availability depending on patient's insurance coverage) Upper respiratory symptoms appears to be viral in nature -Chest X ray negative -current strep test results are negative -current mono test results are negative -have empirically switched levaquin to amoxicillin and ciprofloxacin on 07/02/18 to provide coverage for possible respiratory infection or abdominal/renal infection -Patient should take amoxcillin three times a day for 9 days and ciprofloxacin twice a day for 9 days -Patient may take acetaminophen 325 mg every 6 hours as needed if temperature is above 100.8 F or for pain. 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 Discharge Diagnosis Right kidney stone and Hydronephrosis, Upper respiratory symptoms suggestive of upper respiratory infection Discharge instructions Patient should take amoxcillin three times a day for 9 days and ciprofloxacin twice a day for 9 days Patient may take acetaminophen 325 mg every 6 hours as needed if temperature is above 100.8 F or for pain. Do not exceed more than 3000 mg of acetaminophen in a day Patient should drink water and avoid dehydration [facility] Address: [place] [address] at 07/06/18 at 9:[address] [facility] clinic [facility] Address: [address] [address] have been notified to seek appointment availability or patient can follow up with [facility] urology group which has seen patient in the hospital stay [address], [place] [id number] Wednesday through , from 9:00 am to 5:00 pm Wednesday, from 9:00 am - 2:00 pm (they recommend to continue to strain urine; no acute intervention required at this time; and as candidate for Extracorporeal shock wave lithotripsy as outpatient once recovered from respiratory illness) Subjective Patient has been afebrile. anterior neck tenderness has improved as per patient no acute leg pain today denies chest pain or shortness of breath patient able to eat. no vomiting. has been ambulatory Physical Exam 2 Vital Signs (Past 24 Hours): Last Vital Signs Temp 36.5 C 07/02/18 07:40 Pulse 63 07/02/18 07:40 Resp 16 07/02/18 07:40 BP 100/62 07/02/18 07:40 Pulse Ox 100 07/02/18 07:40 Constitutional: WD/WN, vitals as above Eyes: PERRL, conjunctivae normal, anicteric sclerae EOM intact bilaterally ENMT: external ear and nose normal, oropharynx normal Neck: normal visual inspection and trachea midline Thyroid: + thyroid tender Respiratory: normal respiratory effort, lungs clear to auscultation Cardiovascular: RRR, no murmur, no edema Gastrointestinal (Abdomen): normal bowel sounds, soft, nontender, no hepatosplenomegaly Musculoskeletal: Head/Neck/Chest: normocephalic and head atraumatic Neurologic: PERRL, EOMI, accommodation nl, no face palsy, no dysarthria CN' s II-XI intact bilaterally Psychiatric: A+Ox3, euthymic affect
--- NOTE | 2018-07-02 12:02 | Discharge Summary ---
Date of Service July 02, 2018 Admission HPI Per Admitting Provider CHIEF COMPLAINT: Fever and cough. HISTORY OF PRESENT ILLNESS: This is a 23-year-old male with past medical history significant for lactose intolerance, tobacco abuse. He comes because of not feeling well since last Wednesday. He was having cough with yellowish phlegm and was also having temperature at home, feeling hot and cold, was soaking in sweat and also nausea. Not able to eat much because of nausea and also occasional shortness of breath and abdominal discomfort which brought him to the ER today. Currently resting comfortably and hemodynamically stable. He has some complaints of abdominal discomfort in the left upper quadrant region. No headache, no blurred visions. Has some postnasal drip and sore throat. Normal bowel and bladder movements. No blood in the stools, no black stools, no burning micturitions, no hematuria. ALLERGIES: LACTOSE INTOLERANCE. PAST MEDICAL HISTORY: As mentioned above. PAST SURGICAL HISTORY: None. MEDICATIONS: None. FAMILY HISTORY: Significant for father has allergies, mother has allergies, brother has allergies, sister has allergies, paternal grandfather has asthma. SOCIAL HISTORY: Smokes 1 pack of cigarettes in 3 days for last 4 years. No alcohol use, no drug use. REVIEW OF SYSTEMS: As per HPI. Rest of the review of symptoms negative. Admission Exam Per Admitting Provider PHYSICAL EXAMINATION: GENERAL: The patient is of moderate build, not in acute distress. VITAL SIGNS: Temperature 37.3, pulse 85, respiratory rate 20, blood pressure 118/82, oxygen 99% room air. HEENT: No pallor, no icterus. Pupils equal, round, and react to light. NECK: No JVD, no neck masses, no carotid bruits. CARDIOVASCULAR: S1, S2 heard, regular rate and rhythm, no murmur, no gallop. RESPIRATORY SYSTEM: Normal AP diameter. No accessory muscle use. No wheezing, no crackles. ABDOMEN: Soft, bowel sounds present, mild left upper quadrant tenderness. No guarding, no rigidity. No CVA tenderness. CENTRAL NERVOUS SYSTEM: Cranial nerves II-XII grossly intact, nonfocal. EXTREMITIES: No edema, no erythema. Principal Diagnosis Right kidney stone and Hydronephrosis, Upper respiratory symptoms suggestive of upper respiratory infection Discharge Exam Constitutional WD/WN, vitals as above Eyes PERRL, conjunctivae normal, anicteric sclerae EOM intact bilaterally ENMT external ear and nose normal, oropharynx normal Neck normal visual inspection and trachea midline Thyroid: + thyroid tender Respiratory normal respiratory effort, lungs clear to auscultation Cardiovascular RRR, no murmur, no edema Gastrointestinal (Abdomen) normal bowel sounds, soft, nontender, no hepatosplenomegaly Musculoskeletal Head/Neck/Chest: normocephalic and head atraumatic Neurologic PERRL, EOMI, accommodation nl, no face palsy, no dysarthria CN's II-XI intact bilaterally Psychiatric A+Ox3, euthymic affect Discharge Data Allergies Allergy/AdvReac Type Severity Reaction Status Date / Time lactose Allergy Intermediate N/V/D Verified 06/30/18 19:59 bee venom protein (honey bee) Allergy Unknown ANAPHYLAXIS Verified 06/30/18 19: 59 Consultations 06/30/18 22:24 ED Decision to Admit Stat 07/01/18 08:00 Consult Urology Routine Ordered Studies 06/30/18 20:22 CT abd pelvis IV con only Stat Hospital Course (1) Nephrolithiasis: 23 year old male who presents to the Emergency Room on 06/30/18 symptoms started as a sore throat and has progressed to ear pain, jaw pain, a productive cough, body aches and nausea and vomiting. Right kidney stone and Hydronephrosis -admission imaging remarkable for Mild right-sided hydroureteronephrosis secondary to an 8 x 5 x 8 mm calculus of the mid right ureter at the level of L3 -however his urinalysis does not show infected urine -patient was started on Levaquin -[facility] has evaluated the patient and recommends to Continue to strain urine; no acute intervention required at this time; and as candidate for Extracorporeal shock wave lithotripsy as outpatient once recovered from respiratory illness -s/p IV fluids Patient should drink water and avoid dehydration -patient can follow up with [facility] which has seen patient in the hospital stay (or Dr. [facility] clinic [facility] Address: [address] [place] [address], [place] [address] have been notified to seek appointment availability depending on patient's insurance coverage) Upper respiratory symptoms appears to be viral in nature -Chest X ray negative -current strep test results are negative -current mono test results are negative -have empirically switched levaquin to amoxicillin and ciprofloxacin on 07/02/18 to provide coverage for possible respiratory infection or abdominal/renal infection -Patient should take amoxcillin three times a day for 9 days and ciprofloxacin twice a day for 9 days -Patient may take acetaminophen 325 mg every 6 hours as needed if temperature is above 100.8 F or for pain. 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 Discharge Diagnosis Right kidney stone and Hydronephrosis, Upper respiratory symptoms suggestive of upper respiratory infection Discharge instructions Patient should take amoxcillin three times a day for 9 days and ciprofloxacin twice a day for 9 days Patient may take acetaminophen 325 mg every 6 hours as needed if temperature is above 100.8 F or for pain. Do not exceed more than 3000 mg of acetaminophen in a day Patient should drink water and avoid dehydration Patient has follow up appointment with Dr. Alvarez at [facility] Address: [address] [place] [id number] at 07/06/18 at 9:[address] [facility] Address: [address] [place] [address], [place] [address] have been notified to seek appointment availability or patient can follow up with [facility] urology group which has seen patient in the hospital stay [address] [address] Wednesday through , from 9:00 am to 5:00 pm Wednesday, from 9:00 am - 2:00 pm (they recommend to continue to strain urine; no acute intervention required at this time; and as candidate for Extracorporeal shock wave lithotripsy as outpatient once recovered from respiratory illness) Total Time Total Time Spent Total Time Spent (In Minutes): 40 minutes Total Time Includes: Examination of the Patient, Discharge Planning and Medication Reconciliation Discharge Plan Discharge Items Patient Disposition: Home - Self-Care Reason For Visit: COUGH AND FEVER Discharge Diagnosis: Right kidney stone and Hydronephrosis, Upper respiratory symptoms Condition: Good Discharge Goals: Improve disease control Activity: Resume your previous activity Non-emergency contact: Primary Care Provider and Specialist Call non-emergency contact if: you have any medication questions Diet: Regular Addtl Provider Instructions: Discharge instructions Patient should take amoxcillin three times a day for 9 days and ciprofloxacin twice a day for 9 days Patient may take acetaminophen 325 mg every 6 hours as needed if temperature is above 100.8 F or for pain. Do not exceed more than 3000 mg of acetaminophen in a day Patient should drink water and avoid dehydration Patient has follow up appointment with Dr. Alvarez at [facility] Address: [address] [place] [address], [place] [address] at 07/06/18 at 9:[address] [facility] clinic [facility] Address: [facility] [address], [place] [address] have been notified to seek appointment availability or patient can follow up with [facility] urology group which has seen patient in the hospital stay [facility] - [address] [place] [address] Wednesday through , from 9:00 am to 5:00 pm Wednesday, from 9:00 am - 2:00 pm (they recommend to continue to strain urine; no acute intervention required at this time; and as candidate for Extracorporeal shock wave lithotripsy as outpatient once recovered from respiratory illness) Prescriptions: New amoxicillin 500 mg Capsule 500 mg PO TID 9 Days Qty: 27 RF: 0 ciprofloxacin HCl 500 mg Tablet 500 mg PO BID 9 Days Qty: 18 RF: 0 acetaminophen 325 mg capsule 325 mg PO Q6H PRN (Reason: fever or pain) 5 Days Qty: 30 RF: 0 Continue No Known Home Medications RF: 0 Stand-Alone Forms: My [facility] Discharge Orders: Discharge Order (Routine); Ordered 07/02/18 Ordered By: Osmin Hearn Admission Data Admit Date/Time: 06/30/18 23:37 Attending Provider: Osmin Hearn Admit Provider: Dewayne Pool Primary Care Provider: Valeriano Alvarez Other Providers: Dewayne Pool ; Luis Daniel Smith Service: Surgical Services Other Interventions: Discharge Summary Assessment (RN) Last Done: 07/02/18 11:47
[2018-07-04 15:27] LABS: Epstein Barr Virus Early Ag Ab < 9.00 U/ML
== END 2018-07-02 12:15 | disposition home or self-care (01) | DRG 694 ==
LOC: ED 17:13 → 3W 23:37